=== PATIENT | male | born 2000 | race Two or more races ===

== ENCOUNTER 2021-08-31 09:46 | Outpatient (RCR) | payer SELFPAY | END 2021-09-18 23:59 | LOC: EMPH 09:46 | PROVIDERS: Visit Provider Family Medicine Geriatric Medicine | DX: Z03.818 Encounter for observation for suspected exposure to other biological agents ruled out (principal) | CPT/HCPCS: 87426 ==

== ENCOUNTER 2025-05-05 20:31 | Observation (INO) | payer OTHER, SELFPAY ==
--- NOTE | 2025-05-05 21:47 | HP.PCM.HOS_ITS ---
HPI - General General Date of Admission: 05/05/25 Date of Service: 05/05/25 Chief Complaint: Headache, congestion, cough, dyspnea, F/C. HPI Narrative The patient is a 25 y/o M ([facility] [employer]) w/ PMHx: Obesity, Asthma, Complex regional pain syndrome with chronic R foot pain using crutches chronically who presents to the [facility] ED on 05/05/2025 from outside facility ED with history of onset on day of presentation General Malaise, fatigue, poor intake, generalized headache and sinus pressure with nonproductive cough, dyspnea and subjective fevers and chills as well as shortness of breath but no wheezing prompting eventual ED evaluation at outside facility. Patient does report 1 bout of emesis while in the ambulance while EMS was placing an IV and notes this is very specifically associated with his needle aversion otherwise he only had recently decreased appetite but no other nausea or emesis or any GI symptoms. His and his daughter have not been ill recently. At the outside facility workup not significant appearing however patient was noted to be intermittently hypoxic and ambulatory pulse oximeter was performed and patient was noted to be 86% on room air with ambulation prompting transfer to [facility] request. Workup in the outside facility ED included negative strep throat, CT abdomen pelvis with IV contrast with no acute findings with hepatic steatosis and in regard to the lower thorax noted bibasilar atelectasis and/or scarring, chest x-ray with no acute cardiopulmonary findings, BMP with sodium 137, potassium 3.8, chloride 108, CO2 20, anion gap 16, BUN/creatinine 16/1.01, GFR 105, glucose 108, CBC with WC 16.15, hemoglobin 14.9, MCV 89.3, platelet 259 with left shift, rapid SARS COVID/influenza/RSV negative. [facility] Medical History Complex regional pain syndrome Obesity Asthma Home Medications Medication Instructions Recorded Last Taken Type NK 05/05/25 Unknown History Allergy/AdvReac Type Severity Reaction Status Date / Time No Known Allergies Allergy Verified 05/05/25 20:08 Family History adopted adopted (Closed adoption, does not know biological family history.) Surgical History No history of previous surgery Social History household members: spouse and children Smoking Status: Never smoker alcohol intake: never substance use type: does not use ROS ROS Narrative Admission Review of Systems: CONSTITUTIONAL: No weight loss, + fever, chills, weakness or fatigue. HEENT: + Headache, congestion. Eyes: No visual loss, blurred vision, double vision or yellow sclerae. Ears, Nose, Throat: No hearing loss, sneezing. SKIN: No rash or itching, lesions, wounds. CARDIOVASCULAR: No chest pain, chest pressure or chest discomfort, palpitations, edema, orthopnea, syncopal events. RESPIRATORY: + Dyspnea, nonproductive cough. No wheezing or hemoptysis. GASTROINTESTINAL: + Poor appetite. No nausea, vomiting or diarrhea, abdominal pain, melena, BRBPR. GENITOURINARY: No dysuria, frequency, urgency or retention. NEUROLOGICAL: + Headache/sinus pressure. No dizziness, syncope, paralysis, ataxia, numbness or tingling in the extremities, focal weakness, change in bowel or bladder control, seizure. MUSCULOSKELETAL: + muscle, back pain, joint pain or stiffness. HEMATOLOGIC: No anemia, bleeding or bruising. LYMPHATICS: No enlarged nodes. No history of splenectomy. PSYCHIATRIC: No history of depression or anxiety. ENDOCRINOLOGIC: No reports of sweating, cold or heat intolerance. No polyuria or polydipsia. ALLERGIES: + History of asthma. Vital Signs Vital Signs Vital Signs: 97.9 T, 95 HR, 18 RR, 97% on RA, 150/94 BP Physical Exam Narrative Physical Examination: General: Awake, alert, oriented x 3 and cooperative, laying in the MS bed, fatigued, currently 97% on room air not requiring oxygen supplementation but had been hypoxic with ambulation at outside facility. Skin: Normal color, normal turgor, no icterus, no cyanosis. HEENT: AT/NC, EOMI, PERRLA, moderately dry MM, no carotid bruits or JVD noted. Lungs: CTA bilaterally, moderate effort, mild decrease BL bases, no rales, ronchi or wheezing. Heart: Regular rate and rhythm; no gallop, rub audible. Abdomen: Soft, obese, NTTP, ND, mildly hyperactive BS, no appreciated HSM. Extremities: No cyanosis, no clubbing, mild ankle not markedly pitting edema, bilateral peripheral pulses intact, chronic discomfort with palpation of the right distal extremity. Neurological: Patient awake, alert, oriented as noted, cognitive function intact; pupils equally reactive to light and accommodation, cranial nerves grossly normal, moving all 4 extremities although limited right lower extremity movement given pain which he notes is chronic and unchanged, no focal deficits, strength moderately globally decreased. Psychiatric: Affect appears fatigued, mildly uncomfortable appearing, no acute evidence of depressive or anxiety feelings. Assessment & Plan Assessment/Plan (1) Hypoxia: PLAN: Plan The patient is a 25 y/o M ([facility] [employer]) w/ PMHx: Obesity, Asthma, Complex regional pain syndrome with chronic R foot pain using crutches chronically who presents to the [facility] ED on 05/05/2025 from outside facility ED with history of onset on day of presentation General Malaise, fatigue, poor intake, generalized headache and sinus pressure with nonproductive cough, dyspnea and subjective fevers and chills as well as shortness of breath but no wheezing prompting eventual ED evaluation at outside facility. #1. Acute hypoxia of unclear etiology, given symptoms potentially acute viral syndrome: Will admit to MS, maintain on oxygen with wean as tolerated to room air, continue ATC duonebs, PRN albuterol, will obtain D-dimer given chronic crutch usage and more sessile thus certainly higher risk for possibility of PE but unfortunately cannot obtain CTPA upon arrival given patient was recently administered contrast at outside ED facility for CT abdomen and pelvis with IV contrast, will encourage HOB, IS parameters w/ pending sputum cultures, full respiratory viral panel, procalcitonin and urine antigens. #2. Elevated BP without hypertensive diagnosis: BP upon arrival currently elevated, unclear if related with acute presentation #1, continue to monitor and add regimen if appropriate, in the interim as needed IV hydralazine. #3. Chronic asthma: Complicates presentation, Will maintain on oxygen with wean as tolerated to room air, will maintain on ATC duonebs, PRN albuterol, HOB, IS parameters. #4. Complex regional pain syndrome: Patient with chronic right foot pain using crutches chronically, as noted D-dimer pending, unable to obtain CTPA immediately given usage of contrast at outside facility, encourage offloading, PT/OT/case management consulted for discharge planning. From discussion with patient he uses Tylenol as needed. Will have as needed Toradol given normal renal function as well. #5. Obesity: Weight loss and lifestyle changes encouraged. #6. DVT prophylaxis: Lovenox. Charges/Coding Visit Charges Inpatient E&M: 61396 Init Hosp L2
--- OUTSIDE RECORDS SUMMARY | 2025-05-05 21:49 | XMS RPT_ITS | CCD ---
Author Organization [facility] Care Team Providers Care Chief Operating Officer Name Role Phone MENDY NOLEN Admitting Unavailable MENDY NOLEN Attending Unavailable AA NO PCP, NO PCP Primary Care Unavailable Required, No Pcp Unavailable Unavailable Coty Villela Unavailable Unavailable Unavailable Primary Care Provider Unavailabl e Unavailable Primary Care Provider Unavailabl e COTY VILLELA E Attending Unavailable Unavailable Primary Care Provider Unavailabl e Medications Current Medications Medication Drug Class(es) Dates Sig (Normalized) Sig (Original) benzonatate 100 mg oral capsule (2 sources) Non-narcotic Antitussive Start: 12-20-2022 End: 08-25-2024 take 1-2 capsules by mouth three times daily as needed for cough benzonatate (TESSALON PERLES) 100 mg capsule Indications: URI, acute Take 1-2 capsules by mouth three times daily as needed for cough. 30 capsule 12/20/2022 08/25/2024 Discontinued (Course of therapy completed) Comment on above: Take 1-2 capsules by mouth three times daily as needed for cough. ondansetron 4 mg disintegrating oral tablet (2 sources) Serotonin-3 Receptor Antagonist Start: 08-25-2024 take 1 tablet by mouth every eight hours as needed for nausea ondansetron orally disintegrating (ZOFRAN ODT) 4 mg disintegrating tablet Indications: Viral gastroenteritis Take 1 tablet by mouth every 8 hours as needed for nausea/vomiting. 10 tablet 08/25/2024 Active Start: 06-26-2021 End: 12-20-2022 take 1 tablet by mouth every eight hours as needed ondansetron orally disintegrating (ZOFRAN ODT) 4 mg disintegrating tablet Take 1 tablet by mouth every 8 hours as needed for nausea/vomiting. 12 tablet 0 06/26/2021 12/20/2022 Discontinued (Course of therapy completed) Comment on above: Take 1 tablet by claudia th every 8 hours as needed for nausea/vomiting. Problems Problem Classification Problem Date Documented Da te Episodic/Chronic Administrative/social admission (5 sources) Patient encounter status; Translations: [Health examination of defined subpopulations] Onset: 01-17-2024 03-09-2022 Episodic Headache; including migraine (1 source) Headache; Translations: [Headache, unspecified headache type] 08-25-2024 Episodic Intestinal infection (1 source) Viral gastroenteritis; Translations: [Viral intestinal infection, unspecified] 08-25-2024 Episodic Other upper respiratory infections (1 source) Acute upper respiratory infection; Translations: [Acute upper respiratory infection, unspecified] Episodic Unclassified (2 sources) WORK PHYSICAL 03-09-2022 Comment on above: WORK PHYSICAL Unclassified (1 source) Physical exam, pre-employment 03-09-2022 Results Test Name Value Interpretation Reference Range Facil ity Provider Note - ED v3on 02-17 Provider Note - ED v3 Provider Note: Chart Review: HISTORY OF PRESENTING ILLNESS JITENDRA is a 21 year old Male and was seen by me at 09-Mar-2022 10:09. The historian is the patient. Triage Information: Most recent Vital Sign Value Date PAST MEDICAL HISTORY ALLERGIES/INTOLERANCES: No Known Allergies HEALTH HISTORY: History of "complex regional pain syndrome" in R knee with ACL/MCL damage s/p [place]. No other known health issues. Family history: no pertinent history. Social history: non-smoker. 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 OUTPATIENT MEDICATIONS: Home Medications Review Status for Reconciliation: Complete Med Status: No Current Medications SIGNIFICANT EVENTS: Social/Behavioral Description:pt denies use No known significant events or known past surgical history. Is up to date with immunizations, per patient. CRITICAL CARE VITAL SIGNS: T PRBP SpO2O2(LPM) %FiO2 Method 09-Mar-2022 09:47:[id number] Recheck BP: 142/93. Patient asymptomatic - reports drank a 2 L of Mountain Dew this AM before his visit. Denies history of elevated BP/HTN. MDM MDM/ED COURSE: This note was generated with voice recognition software and may contain errors including spelling, grammar, syntax, and misrecognization of what was dictated CHIEF COMPLAINT work physical HISTORY OF PRESENT ILLNESS Patient presents today for a pre-employment physical - is planning to start as an SENIOR SOFTWARE TESTER at a [employer]. He is not currently taking any medications or supplements; denies any known health issues aside from Complex Regional Pain Syndrome in his R knee, which has been baseline since an injury in high school. He does not currently take any medications for his symptoms, and does not feel his intermittent mild knee discomfort (that he is able to easily manage with OTC medications) would interfere with job duties - reports has recently worked as an SENIOR SOFTWARE TESTER without any difficulties. He reports is up to date with all immunizations and well visits - reports has already received the [id number] flu vaccine and the Hep B series. Denies any complaints. Has never had any c/o chest pain, needed to stop playing, or developed shortness of breath during exercise. Denies any personal or family history of cardiac or respiratory issues, headaches, seizures, dizziness, syncope, musculoskeletal issues (aside from as noted above), mental health issues, head injury, or other contraindications to clearance for physical activity. REVIEW OF SYMPTOMS 10 systems reviewed negative aside from as noted above. Denies any acute c/o. PHYSICAL EXAMINATION General: Pleasant male, in no acute distress. Alert and oriented. Eye: Pupils are equal, round and reactive to light. EOMI intact bilat. Conjunctiva clear. HENT: Normocephalic. TMs and pharynx clear. Hearing grossly intact to whisper test and finger rub test bilat. Neck: Supple, Non-tender, No lymphadenopathy, no thyromegaly. Respiratory: Lungs are clear and equal to auscultation, no wheezing, rhonchi, or rales. Respirations are easy and unlabored. Symmetrical chest wall expansion. Cardiovascular: Normal rate, Regular rhythm. Normal S1S2. No murmurs, rubs, or gallops noted in seated or supine position. Gastrointestinal: Soft, non-tender, non-distended. No palpable masses or organomegaly. Bowel sounds normoactive. Genitourinary: no hernias appreciated. Musculoskeletal: No spinal curvature. Normal range of motion spine and all extremities; full strength all extremities proximally and distally, no joint tenderness, redness, swelling, laxity, or limitations. Patellar DTRs 2+ bilat. Able to perform full squat, heel/toe stand, and duck walk without difficulty. Gait unremarkable. Integumentary: Kenney, warm, dry, and Intact. No rashes appreciated. Neurologic: Alert, Oriented, Normal sensory, Normal motor function. administrator health care facility 2-12 grossly intact. Neg Romberg. Cognition and Speech: Oriented, Speech clear and coherent. Psychiatric: Cooperative, Appropriate mood & affect. MEDICAL DECISION MAKING Course: Unchanged; unremarkable physical exam. Impression/Plan: Reports history of "complex regional pain syndrome" in R knee but denies any limitations, and none noted on exam today. BP today was markedly elevated but improved significantly upon recheck; patient asymptomatic and reports drank a 2 L of Mountain Dew prior to today's visit. Urged lifestyle modifications and close monitoring. Based on history and exam, patient medically cleared for work without restriction, although encouraged good body mechanics, and to f/u closely with PCP. Should also consider f/u with optometry for vision correction. Problem: need for medical clearance for pre-employement Data reviewed/analyzed: No labwork, imaging, or tests outside of physical exam don (more content not included)... Normal [facility] COVID 19 AG RAPID (VANCE Kaye)on 08-31-2021 SARS-CoV-2 (COVID-19) RNA NATASHA+probe Ql (Unsp spec) SARS-CoV-2 (COVID 19) Negative RAPID METHOD Quidel Rosemarie Analyzer DONALD Normal [facility] Comment on above: Performed By: #### [id number] #### [facility] [address] [place], [place], [id number] Urgent Care Visit Reporton 1 10-10-2020 Urgent Care Visit Report [facility] [address] [place], [place] [address] OFFICE VISIT Date of Service: 08/09/21 MR#: [id number] Acct: [id number] Name: JITENDRA ALLEN Rep #: [id number] : 2000 Provider: ERIKA anderson Age/Sex: 21/M Location: [facility] Status: Signed Intake Intake Visit Reasons: PE PHYSICAL/[facility] Medical History (Updated 08/09/21 @ 09:40 by ERIKA Jorge) Physical exam, pre-employment HPI HPI Details: JITENDRA ALLEN, is a 21 M who presents to the office today for Office Procedures Physical Exam Coding PE Coding Sports/School Physical: No DOT PE: No Pre-employment PE: Yes Coding Level of Care Code No Charge Diagnoses Physical exam, pre-employment Z02.1 CPT Codes PE Coding - Pre-employment PE: Yes (PREPE) Assessment and Plan Assessment and Plan (1) Physical exam, pre-employment: Status: Acute Plan: See attached scanned preemployment physical examination forms corresponding with today's date 08/09/21939 Date Mohinder JAMES Cosigner Signature: Date (if applicable) CC: Normal [facility] DONIS XR Chest 1 view-APon 02-17 DONIS XR Chest 1 view-AP PORTABLE CHEST: CLINICAL INDICATION: Positive skin test, annual physical exam TECHNIQUE: PA chest COMPARISON: None FINDINGS: The cardiac and mediastinal silhouettes are normal. The lungs are clear. No sizable pleural effusion. The osseous structures are unremarkable. IMPRESSION: No acute process. Report Dictated on Authenticated by: Sandro Krause On: 03/09/2020 10:32 Read by: SANDRO KRAUSE MD Date: 03/09/2020 10:32 Normal [facility] Vital Signs Date Time Vital Sign Value Performing Clinician Facility 01-17-2024 11:15-0400 Diastolic blood pressure 94 mm[Hg] Coty Villela APRN-SHODER FILLER Work Phone: [facility] 01-17-2024 11:15-0400 Systolic blood pressure 138 mm[Hg] Coty Villela APRN-SHODER FILLER Work Phone: [facility] 01-17-2024 10:52-0400 Body height 170.2 cm Coty Villela APRN-SHODER FILLER Work Phone: [facility] 01-17-2024 10:52-0400 Body mass index (BMI) [Ratio] 33.67 kg/m2 Coty Villela APRN-SHODER FILLER Work Phone: [facility] 01-17-2024 10:52-0400 Body temperature 98.8 [degF] Coty Villela APRN-SHODER FILLER Work Phone: [facility] 01-17-2024 10:52-0400 Body weight 97.52 kg Coty Villela APRN-SHODER FILLER Work Phone: [facility] 01-17-2024 10:52-0400 Heart rate 71 /min Coty Villela APRN-SHODER FILLER Work Phone: [facility] 01-17-2024 10:52-0400 Respiratory rate 18 /min Coty Villela APRN-SHODER FILLER Work Phone: [facility] 01-17-2024 10:52-0400 SaO2% (BldA) [Mass fraction] 98 % Coty Villela APRN-SHODER FILLER Work Phone: [facility] 03-09-2022 11:47-0400 Body height 168 cm No Pcp Required [facility] 03-09-2022 11:47-0400 Body temperature 97.16 [degF] No Pcp Required [facility] 03-09-2022 11:47-0400 Diastolic blood pressure 93 mm[Hg] No Pcp Required [facility] 03-09-2022 11:47-0400 Heart rate 92 /min No Pcp Required [facility] 03-09-2022 11:47-0400 SaO2% (BldA) [Mass fraction] 97 % No Pcp Required [facility] 03-09-2022 11:47-0400 Systolic blood pressure 142 mm[Hg] No Pcp Required [facility] Encounters Encounter Date Encounter Type Care Provider Facility Start: 08-25-2024 End: 08-25-2024 Telemedicine consultation with patient Karma D Rafa STEAMER BLOCKER.SHODER FILLER Work Phone: Tele[facility] Comment on above: Viral gastroenteriti s (Primary Dx); Headache, unspecified headache type Start: 08-25-2024 End: 08-25-2024 ambulatory Facility:[facility] Start: 01-17-2024 End: 01-17-2024 Patient encounter procedure Coty Villela STEAMER BLOCKER-SHODER FILLER Work Phone: [facility] Comment on above: Encounter for physic al examination related to employment (Primary Dx) Start: 01-17-2024 End: 01-17-2024 ambulatory COTY VILLELA [facility] Start: 12-20-2022 End: 12-20-2022 ambulatory Nickie Olegario STEAMER BLOCKER.SHODER FILLER Work Phone: Telemedicine Comment on above: URI, acute (Primary Dx); Encounter to establish care Start: 12-20-2022 End: 12-20-2022 Telemedicine consultation with patient Nickie Olegario STEAMER BLOCKER.SHODER FILLER Work Phone: [facility] Start: 03-09-2022 End: 03-09-2022 Emergency department patient visit Coty Villela [facility] Start: 03-09-2020 End: 03-09-2020 Patient encounter procedure MENDY Kael [facility] Plan of Treatment Date Care Activity Detail Author Start: 2048 Zoster Vaccines (1 of 2) Zoster Vaccines (1 of 2) [facility] Start: 04-19-2024 Covid-19 Vaccine ( season) Covid-19 Vaccine ( season) [facility] Start: 04-19-2024 Influenza vaccination [facility] Start: 04-19-2023 COVID-19 Vaccine ( season) COVID-19 Vaccine ( season) [facility] Start: 04-19-2023 Influenza vaccination [facility] Start: 08-19-2022 DEPRESSION ASSESSMENT DEPRESSION ASSESSMENT [facility] Start: 04-05-2019 DTaP/Tdap/Td Vaccines (7 - Td or Tdap) DTaP/Tdap/Td Vaccines (7 - Td or Tdap) [facility] Start: 04-05-2019 Urine microalbumin profile DTaP,Tdap,Td Vaccine (7 - Td or Tdap) [facility] Start: 2017 Urine microalbumin profile DTAP,TDAP,TD (1 - Tdap) [facility] Start: 07-25-2016 Hepatitis A Vaccines (2 of 2 - 2-dose series) Hepatitis A Vaccines (2 of 2 - 2-dose series) [facility] Start: 2016 Anxiety Screening Anxiety Screening [facility] Start: 2016 Depression Screening Depression Screening [facility] Start: 2016 HEPATITIS C SCREENING HEPATITIS C SCREENING [facility] Start: 2016 Hepatitis C screening Hepatitis C Screening [facility] Start: 2016 HIV SCREENING HIV SCREENING [facility] Start: 2016 HIV screening HIV Screening [facility] Start: 2013 HPV Vaccine (1 - Male 3-dose series) HPV Vaccine (1 - Male 3-dose series) [facility] Start: 2013 HPV Vaccines (1 - Male 3-dose series) HPV Vaccines (1 - Male 3-dose series) [facility] Start: 2012 PEDS TO ADULT TRANSITION ANNUAL ASSESSMENT PEDS TO ADULT TRANSITION ANNUAL ASSESSMENT [facility] Start: 2010 PEDS TO ADULT TRANSITION INITIAL DISCUSSION PEDS TO ADULT TRANSITION INITIAL DISCUSSION [facility] Start: 2009 HPV VACCINE (1 - Male 2-dose series) HPV VACCINE (1 - Male 2-dose series) [facility] Start: 2008 MENINGOCOCCAL B: Consider based on risk (1 of 2 - Risk Bexsero 2-dose series) MENINGOCOCCAL B: Consider based on risk (1 of 2 - Risk Bexsero 2-dose series) [facility] Start: 1998 COVID-19 VACCINE (#1) COVID-19 VACCINE (#1) [facility] Start: 1998 HEPATITIS B (1 of 3 - 3-dose series) HEPATITIS B (1 of 3 - 3-dose series) [facility] Start: 1998 HIV screening HIV Screening [facility] Start: 1998 Lipid panel Lipid Panel [facility] Start: 1998 Yearly Adult Physical Yearly Adult Physical [facility] Immunizations Immunization Date Immunization Notes Care Provider Fa pedro 08-31-2021 influenza virus vaccine, unspecified formulation Coty Villela STEAMER BLOCKER-SHODER FILLER Work Phone: [facility] Work Phone: 01-24-2016 hepatitis A and hepatitis B vaccine Coty Villela STEAMER BLOCKER-SHODER FILLER Work Phone: [facility] Work Phone: Payers Date Payer Category Payer Private Health Insurance [facility] [employer] [id number] 2024-Present [phone] [address] [place] [address] HMO [id number] 2024 Unknown [id number] 1961 Unknown 0 Unknown [id number] Unknown SELF PAY PRE CAR D SERVICES\\SELF PAY PRE PAID Social History Date Type Detail Facility [facility] Tobacco smoking consumption unknown [facility] Start: 12-18-2019 End: 01-17-2024 Tobacco smoking status NHIS Never smoked tobacco [facility] Work Phone: Start: 12-18-2019 End: 01-17-2024 Tobacco use and exposure Smokeless tobacco non-user [facility] Work Phone: Start: 2000 Sex Assigned At Not on file [facility] Start: 01-17-2024 Alcoholic beverage intake Current drinker of alcohol (finding) [facility] Work Phone: Start: 01-17-2024 Alcohol Comment social [facility] Work Phone: Start: 07-29-2020 End: 08-25-2024 Gender identity Not on file [facility] Work Phone: Start: 01-07-2024 End: 01-17-2024 Exposure to SARS-CoV-2 (event) Not sure [facility] Start: 07-29-2020 End: 08-25-2024 History of Social function [facility] National Score (1-100), lower number is lower risk Not on file [facility] Instructions 08-25-2024 Patient Instructions Note Date & Type Note Facility 08-25-2024 Instructions Karma Craig APRN.CNP - 08/25/2024 9:10 AM EST Please seek further in person evaluation for persistent or worsening symptoms. documented in this encounter [facility] Progress note 08-25-2024 Note Date & Type Note Facility 08-25-2024 Note HNO ID: [id number] Author: KARMA CRAIG APRN.CNP Service: ? Author Type: Nurse Practitioner Type: Progress Notes Filed: 08/25/2024 09:10 Note Text: Telemedicine Evaluation for an Illness MyChart Zoom Video Visit was used for evaluation of this patient. I have communicated my name and active licensure. The patient's identity and physical location were verified at the time of this visit. 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 WILLIAN Allen is a 24 year old male who presents with 4 days of symptoms that are stable. Symptoms include: Fever (>=100.4F): No or Chills: No Cough: No Shortness of breath: No or Difficulty breathing: No Fatigue: No Muscle aches: No Headache: Yes New loss of smell or taste: No Sore throat: No Nasal congestion: No or Rhinorrhea: No Nausea: Yes or Vomiting: Yes Diarrhea: Yes Started with GI issues, lasted about 24 hours, then developed headache for a day or two and then the GI symptoms came back and are ongoing, though vomiting has decreased. Also with some chest/stomach tightness, that he believes is d/t vomiting. OTC meds/remedies that patient has tried: Excedrin High risk category assessment No high risk factors Exposures: Sick contacts? Yes Family or close contacts with confirmed/probable COVID-19 in last 14 days? No He reports that he has never smoked. He has never used smokeless tobacco. 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 He appears to be improving, though slowly and when he takes medication for headache, nausea gets worse. Will try Zofran with goal of helping nausea, so he can start to eat again, hoping that headache medication doesn't trigger more nausea if he has something in his stomach when taking. Overall expect this to be self-limiting. Karma Craig APRN.CINTIA - Discussed symptom monitoring and supportive care - Red flag symptoms requiring follow up discussed [facility] History of Present illness Narrative 08-25-2024 Karma Craig APRN.CINTIA - 08/25/2024 8:56 AM EST Note Date & Type Note Facility 08-25-2024 History of Presen t illness Narrative Telemedicine Evaluation for an Illness MyChart Zoom Video Visit was used for evaluation of this patient. I have communicated my name and active licensure. The patient's identity and physical location were verified at the time of this visit. 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 SUBJECTIVE Jitendra Allen is a 24 year old male who presents with 4 days of symptoms that are stable. Symptoms include: Fever (>=100.4F): No or Chills: No Cough: No Shortness of breath: No or Difficulty breathing: No Fatigue: No Muscle aches: No Headache: Yes New loss of smell or taste: No Sore throat: No Nasal congestion: No or Rhinorrhea: No Nausea: Yes or Vomiting: Yes Diarrhea: Yes Started with GI issues, lasted about 24 hours, then developed headache for a day or two and then the GI symptoms came back and are ongoing, though vomiting has decreased. Also with some chest/stomach tightness, that he believes is d/t vomiting. OTC meds/remedies that patient has tried: Excedrin High risk category assessment No high risk factors Exposures: Sick contacts? Yes Family or close contacts with confirmed/probable COVID-19 in last 14 days? No He reports that he has never smoked. He has never used smokeless tobacco. 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 He appears to be improving, though slowly and when he takes medication for headache, nausea gets worse. Will try Zofran with goal of helping nausea, so he can start to eat again, hoping that headache medication doesn't trigger more nausea if he has something in his stomach when taking. Overall expect this to be self-limiting. Karma Craig APRN.CNP - Discussed symptom monitoring and supportive care - Red flag symptoms requiring follow up discussed documented in this encounter [facility] History of Present illness Narrative 01-17-2024 WU Jenkins - 01/17/2024 10:50 AM EDT Note Date & Type Note Facility 01-17-2024 History of Present illness Narrative [facility] WU Jenkins Visit Note - 01/17/2024 11:32 AM This note was generated with voice recognition software and may contain errors including spelling, grammar, syntax, and misrecognization of what was dictated. Patient: Jitendra Allen, , 23 y.o., male PCP: No primary care provider on file. --- ALLERGIES: No Known Allergies CURRENT MEDICATIONS: No current outpatient medications --- PAST MEDICAL HX: History of Complex Regional Pain Syndrome R knee since injury in HS; also has history of elevated BP. SURGICAL HX: History reviewed. No pertinent surgical history. FAMILY HX: No pertinent history. SOCIAL HX: reports that he has never smoked. He has never used smokeless tobacco. Recently stopped drinking Mountain Dew and energy drinks. Is an SENIOR SOFTWARE TESTER. --- CHIEF COMPLAINT: Work physical HISTORY OF PRESENT ILLNESS: The history was obtained from patientLizzy Ham is a 23 y.o. 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 He is not currently on any medications; reports he did recently stop drinking Mountain Dew and energy drinks to try to help lower his BP, which has been elevated in the past. Has history of CRPS in his R knee since 2290-1101 - reports his symptoms are well managed and patient does not feel his symptoms would interfere with ability to safely perform duties as an SENIOR SOFTWARE TESTER; has not needed to see a doctor anytime in the past few years for his symptoms. Is not taking any medications or supplements. Has history of + TB skin test in the past - reports he has been asymptomatic and has had follow up CXRs several times since then and they have all been negative. Has not been treated for Latent TB. Denies any other known health issues. Reports is up to date with Hepatitis B vaccines; is due for tetanus vaccine and plans to update it. Denies any complaints. Denies any chest pain or shortness of breath during physical activity. Denies any personal or family history of cardiac or respiratory issues, seizures, dizziness, syncope, other musculoskeletal issues, other communicable disease, mental health issues, head injury, or other contraindications to clearance for physical activity and job duties as an SENIOR SOFTWARE TESTER. REVIEW OF SYSTEMS: 10 systems reviewed negative with exception of history of present illness as listed above. TODAY'S VITALS: BP (!) 141/101 Pulse 71 Temp 37.1 C (98.8 F) Resp 18 Ht 1.702 m (5' 7") Wt 97.5 kg (215 lb) SpO2 98% BMI 33.67 kg/m Recheck BP 138/94. PHYSICAL EXAMINATION: General: Pleasant male, in no acute distress. Alert and oriented. Eye: Pupils are equal, round and reactive to light. EOMI intact bilat. Conjunctiva clear. HENT: Normocephalic. TMs and pharynx clear. Hearing grossly intact to finger rub test bilat. Neck: Supple, Non-tender, No lymphadenopathy, no thyromegaly. Respiratory: Lungs are clear and equal to auscultation, no wheezing, rhonchi, or rales. Respirations are easy and unlabored. Symmetrical chest wall expansion. Cardiovascular: Normal rate, Regular rhythm. Normal S1S2. No murmurs, rubs, or gallops noted in seated or supine position. Gastrointestinal: Soft, non-tender, non-distended. No palpable masses or organomegaly. Bowel sounds normoactive. Genitourinary: No hernias appreciated. Musculoskeletal: No spinal curvature. Normal range of motion spine and all extremities; full strength all extremities proximally and distally, no joint tenderness, redness, swelling, laxity, or limitations. Patellar DTRs 2+ bilat. Able to perform full squat, heel/toe stand, and duck walk without difficulty. Gait unremarkable. Integumentary: Kenney, warm, dry, and Intact. No rashes appreciated. Neurologic: Alert, Oriented, Normal sensory, Normal motor function. administrator health care facility 2-12 grossly intact. Neg Romberg. Cognition and Speech: Oriented, Speech clear and coherent. Psychiatric: Cooperative, Appropriate mood & affect. --- Medical Decision Making LABORATORY or RADIOLOGICAL IMAGING ORDERS/RESULTS: None IMPRESSION/PLAN: Course: Stable 1. Encounter for physical examination related to employment Reviewed copy of negative CXR from 03/2022; has been asymptomatic. Encouraged to update Tetanus vaccine as planned. 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 Paperwork completed and handed to patient. [facility] documented [facility] Work Phone: Instructions 12-20-2022 Patient Instructions Note Date & Type Note Facility 12-20-2022 Instructions Nickie Melvin APRN.CNP - 12/20/2022 7:37 PM EDT Please schedule a next available establishing physical with a primary care provider. The [facility] appointment center is open 11/03 and can assist you with scheduling by calling [phone]. Please complete a rapid at home covid test. Have a visit again virtually if covid test is positive. Get plenty of rest, take hot steamy showers/drink warm liquids and breathe in the steam, and stay hydrated. There is no great cough medication. Often remedies such as tea, warm steamy showers, and staying hydrated are the most effective. If you are having a productive cough (meaning you are getting mucous up with your cough), it is preferred to cough and get the mucous out so please only take cough suppressants when you really don't want to cough such as with sleeping. Some options for cough if needed: - Cough drops - Dextromethorphan (can cause drowsiness so may be best to take at bedtime), this is in over the counter medications such as mucinex DM. - Benjieon Lilli (prescription) Do not take oxymetazoline (afrin) Begin taking fluticasone (flonase)- one to two sprays in each nostril once daily before bed: 1. Blow your nose out before spraying 2. Shake it before spraying each time. 3. Keep head in neutral position or looking down slightly. 4. Put about a quarter of the tip of the bottle in the right nostril and aim at the outside corner of the right eye. 5. Pitman one spray only. Take a sniff as you are spraying but do not snort. 6. Repeat in the left nostril while pointing towards the outside corner of the left eye 8. Then if you are doing two sprays in each nostril wait 4-5 minutes before spraying the second spray. 9. If it drips out every time such when the nose is very congested. Have the patient sit on the bed. Look down, spray and then lay down on their back on a bed. This will allow the medicine to coat the nose on the way back. Sit up and repeat for the other side. Can also try loratadine (claritin), fexofenadine (micah), OR cetirizine (zyrtec) as needed for allergy/congestion relief, preferred at bedtime since it can make you drowsy. Cetirizine (zyrtec) has been shown to sometimes be more effective than the others. The generic form is much less expensive than the brand name. documented in this encounter [facility] History of Present illness Narrative 12-20-2022 Nickie Melvin APRN.CINTIA - 12/20/2022 7:32 PM EDT Note Date & Type Note Facility 12-20-2022 History of Presen t illness Narrative Telemedicine Visit - Distance Health Virtual Visit Note Patient seen on [employer] platform. Location of patient: [place] History of Present Illness Jitendra Allen is a 22 year old male who presents for the past 2 days with symptoms that are:waxing and waning. Symptoms include: Fever (?100.4F): Chills, did not take temp Shortness of breath: No Chest Pain: No Cough: Yes - dry Sore throat: Yes Nasal congestion: Yes Loss or altered sense of smell or taste: No Headache or sinus pain/sinus pressure: Yes Ear pain: No Ear pressure: No Nausea: Yes or Vomiting: No Diarrhea: Yes Signs of dehydration (low fluid intake or voiding, dry mucus membranes): No Recent exposure to strep:No Recent exposure to flu:No Recent exposure to COVID:No Recent travel: No Recent rapid at home COVID test taken? No Treatments tried: OTC cold medicine Tobacco Use: Never PAST MEDICAL HISTORY Diagnosis Date Asthmatic bronchitis No past surgical history on file. No family history on file. Social History Tobacco Use Smoking status: Never Smokeless tobacco: Never Vaping Use Vaping Use: Never used Current Outpatient Medications Medication Sig ondansetron orally disintegrating (ZOFRAN ODT) 4 mg disintegrating tablet Take 1 tablet by mouth every 8 hours as needed for nausea/vomiting. No current facility-administered medications for this visit. ALLERGIES No Known Allergies Allergies, medications, problem list, and pertinent history reviewed: Yes Video Exam (Examination performed via Video enabled technology) General appearance: Alert, oriented, pleasant, in NAD: Yes Ill appearing: No Lethargic appearing: No Eyes: Conjunctiva without erythema: Yes Ears: Tragus / outer ear tenderness by self palpation: No Oropharynx: normal, no erythema Frontal sinus tenderness by self palpation: +Yes, mild Maxillary sinus tenderness by self palpation: +Yes, mild Tender cervical adenopathy by self palpation: No Respiratory distress: No Coughing noted: No Audible wheezing noted: No Assessment and Plan (J06.9) URI, acute (primary encounter diagnosis) Plan: benzonatate (TESSALON PERLES) 100 mg capsule (Z76.89) Encounter to establish care Plan: ESTABLISH WITH PRIMARY CARE - NEW PATIENT Jitendra Allen will begin meds as noted. Discussed pertinent side effects of medications. Patient and/or caregiver verbalized understanding. - Discussed the differences between viral and bacterial illnesses and at this time there is no indication of a bacterial illness - AVS instructions reviewed with patient. Please refer to AVS instructions for additional plan and education. - Discussed symptoms/conditions warranting urgent or immediate evaluation and/or when to return to care - All questions answered. Patient and/or caregiver verbalized understanding and comfortable with plan. Please schedule a next available establishing physical with a primary care provider. The [facility] appointment center is open 11/03 and can assist you with scheduling by calling [phone]. Please complete a rapid at home covid test. Have a visit again virtually if covid test is positive. Get plenty of rest, take hot steamy showers/drink warm liquids and breathe in the steam, and stay hydrated. There is no great cough medication. Often remedies such as tea, warm steamy showers, and staying hydrated are the most effective. If you are having a productive cough (meaning you are getting mucous up with your cough), it is preferred to cough and get the mucous out so please only take cough suppressants when you really don't want to cough such as with sleeping. Some options for cough if needed: - Cough drops - Dextromethorphan (can cause drowsiness so may be best to take at bedtime), this is in over the counter medications such as mucinex DM. - Tessalon Perles (prescription) Do not take oxymetazoline (afrin) Begin taking fluticasone (flonase)- one to two sprays in each nostril once daily before bed: 1. Blow your nose out before spraying 2. Shake it before spraying each time. 3. Keep head in neutral position or looking down slightly. 4. Put about a quarter of the tip of the bottle in the right nostril and aim at the outside corner of the right eye. 5. Pitman one spray only. Take a sniff as you are spraying but do not snort. 6. Repeat in the left nostril while pointing towards the outside corner of the left eye 8. Then if you are doing two sprays in each nostril wait 4-5 minutes before spraying the second spray. 9. If it drips out every time such when the nose is very congested. Have the patient sit on the bed. Look down, spray and then lay down on their back on a bed. This will allow the medicine to coat the nose on the way back. Sit up and repeat for the other side. Can also try loratadine (claritin), fexofenadine (micah), OR cetirizine (zyrtec) as needed for allergy/congestion relief, preferred at bedtime since it can make you drowsy. Cetirizine (zyrtec) has been shown to sometimes be more effective than the others. The generic form is much less expensive than the brand name. I have communicated my name and active licensure. The patient's identity and physical location were verified at the time of this visit. 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 Nickie Melvin APRN.CNP If you let us know who your primary care provider is, we will send them a notification of today s visit through our electronic medical records system. Since not all providers have access to our notifications, we strongly encourage you to share the following record of today s visit with your primary care provider at your next visit. This will help in providing you the best care. If you do not have an established Primary Care physician and would like to continue care with a [facility] Virtual Primary Care physician, please ask your provider to place a "Establish Primary Care" order. Use [employer] to manage your care, wherever you are, 11/03, on your mobile device or computer. [employer] connects you to [employer] so you can access all your health information in one place and also schedule and request virtual appointments with primary care providers. documented in this encounter [facility] Evaluation note Note Date & Type Note Facility Evaluation note Diagnosis URI, acute- Primary Acute upper respiratory infections of unspecified site Encounter to establish care Other reasons for seeking consultation documented in this encounter [facility] Evaluation note Note Date & Type Note Facility Evaluation note Diagnosis Encounter for physical examination related to employment- Primary documented in [facility] encounter [facility] Work Phone: Evaluation note Note Date & Type Note Facility Evaluation note Diagnosis Viral gastroenteritis- Primary Intestinal infection due to other organism, not elsewhere classified Headache, unspecified headache type documented in this encounter [facility] Summary Purpose Family History No Family History Records FoundNo Family History Records FoundNo Family History Records FoundNo Family History Records FoundNo Family History Records Found Advance Directives No Advanced Directives Records FoundNo Advanced Directives Records FoundNo Advanced Directives Records FoundNo Advanced Directives Records FoundNo Advanced Directives Records Found Reason for Referral Specialty Diagnoses / Procedures Referred By Contsandra t Referred To Contact Diagnoses Encounter to establish care Procedures ESTABLISH WITH PRIMARY CARE NEW PATIENT OFFICE/OUTPATIENT NEW [facility] 60-74 MINUTES Nickie Melvin APRN.CNP [address] [place] [address] Referral ID Status Reason Start Date Expiration Date Visits Requested Visits Authorized [id number] Pending Review PCP Requested Referral 12/20/2022 12/20/2023 1 1 Additional Source Comments (unrecognized sect ion and content) No Status Records FoundNo Status Records FoundNo Status Records FoundNo Status Records FoundNo Status Records Found INFORMATION SOURCE (unrecogn ized section and content) DATE CREATED AUTHOR 03/12/2020 [facility] DATE CREATED AUTHOR AUTHOR'S ORGANIZ ATION 12/22/2021 [facility] DATE CREATED AUTHOR AUTHOR'S ORGANIZ ATION 03/13/2022 [facility] DATE CREATED AUTHOR AUTHOR'S ORGANIZ ATION 01/18/2024 [facility] DATE CREATED AUTHOR AUTHOR'S ORGANIZ ATION 08/31/[address] [facility] <item> Privacy Markings (unrecogniz ed section and content) Section Author: Latonia Khan PROHIBITION ON REDISCLOSURE OF CONFIDENTIAL INFORMATION This notice accompanies a disclosure of information concerning a client made to you with the consent of such client. Source Comments (unrecognize d section and content) In the event this informatio n is protected by the Federal Confidentiality of Alcohol and Drug Abuse Patient Records regulations: The Federal rules restrict any use of the information to criminally investigate or prosecute any alcohol or drug abuse patient.[facility] the event this information is protected by the Federal Confidentiality of Alcohol and Drug Abuse Patient Records regulations: The Federal rules restrict any use of the information to criminally investigate or prosecute any alcohol or drug abuse patient.[facility] Reason for Visit (unrecogniz ed section and content) Reason Comments Cough Reason Comments Illness FOR RECORDS PERTAINING TO PATIENTS WHO ARE OR HAVE BEEN ENROLLED IN A CHEMICAL DEPENDENCY/SUBSTANCEABUSE PROGRAM, SOME INFORMATION MAY BE OMITTED. This clinical summary was aggregated from multiple sources. Caution should be exercised in using it in the provision of clinical care. This summary normalizes information from multiple sources, and as a consequence, information in this document may materially change the coding, format and clinical context of patient data. In addition, data may be omitted in some cases. CLINICAL DECISIONS SHOULD BE BASED ON THE PRIMARY CLINICAL RECORDS. [facility] [employer] [facility]. provides no warranty or guarantee of the accuracy or completeness of information in this document.
[2025-05-05 21:51] VITALS: BMI 33.2
--- OUTSIDE RECORDS SUMMARY | 2025-05-05 21:54 | XMS RPT_ITS | CCD ---
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 OUTPATIENT MEDICATIONS: Home Medications Review Status for Reconciliation: Complete Med Status: No Current Medications SIGNIFICANT EVENTS: Social/Behavioral Description:pt denies use No known significant events or known past surgical history. Is up to date with immunizations, per patient. CRITICAL CARE VITAL SIGNS: T PRBP SpO2O2(LPM) %FiO2 Method 09-Mar-2022 09:47:[id number] 97 Recheck BP: 142/93. 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 He reports is up to date with all immunizations and well visits - reports has already received the [id number] flu vaccine and the Hep B series. [...] duck walk without difficulty. Gait unremarkable. Integumentary: Bentley, warm, dry, and Intact. No rashes appreciated. Neurologic: Alert, Oriented, Normal sensory, Normal motor function. pipe tester 2-12 grossly intact. Neg Romberg. Cognition and [...] exam don (more content not included)... Normal [facility] COVID 19 AG RAPID (VANCE Kaye)on 08-31-2021 SARS-CoV-2 (COVID-19) RNA NATASHA+probe Ql (Unsp spec) SARS-CoV-2 (COVID 19) Negative RAPID METHOD Quidel Rosemarie Analyzer DONALD Normal [facility] Comment on above: Performed By: #### [id number] #### [facility] [address] [place], [place], [id number] Urgent Care Visit Reporton 1 10-10-2020 Urgent Care Visit Report [facility] [facility] [address] [place], [place] [address] OFFICE VISIT Date of Service: 08/09/21 MR#: [id number] Acct: [id number] Name: JITENDRA ALLEN Rep #: [id number] : 2000 Provider: ERIKA anderson Age/Sex: 21/M Location: [facility] [place] [place] Status: Signed Intake Intake Visit Reasons: PE PHYSICAL/[facility] Medical History (Updated 08/09/21 @ [...] Cosigner Signature: Date (if applicable) CC: Normal [facility] DONIS XR Chest 1 view-APon 02-17 DONIS [...] SANDRO KRAUSE MD Date: 03/09/2020 10:32 Normal [facility] Vital Signs Date Time Vital Sign Value Performing Clinician Facility 01-17-2024 11:15-0400 Diastolic blood pressure 94 mm[Hg] Coty Villela APRN-BALANCE AND HAIRSPRING ASSEMBLER Work Phone: [facility] 01-17-2024 11:15-0400 Systolic blood pressure 138 mm[Hg] Coty Villela APRN-BALANCE AND HAIRSPRING ASSEMBLER Work Phone: [facility] 01-17-2024 10:52-0400 Body height 170.2 cm Coty Villela APRN-BALANCE AND HAIRSPRING ASSEMBLER Work Phone: [facility] 01-17-2024 10:52-0400 Body mass index (BMI) [Ratio] 33.67 kg/m2 Coty Villela APRN-BALANCE AND HAIRSPRING ASSEMBLER Work Phone: [facility] 01-17-2024 10:52-0400 Body temperature 98.8 [degF] Coty Villela APRN-BALANCE AND HAIRSPRING ASSEMBLER Work Phone: [facility] 01-17-2024 10:52-0400 Body weight 97.52 kg Coty Villela APRN-BALANCE AND HAIRSPRING ASSEMBLER Work Phone: [facility] 01-17-2024 10:52-0400 Heart rate 71 /min Coty Villela APRN-BALANCE AND HAIRSPRING ASSEMBLER Work Phone: [facility] 01-17-2024 10:52-0400 Respiratory rate 18 /min Coty Villela APRN-BALANCE AND HAIRSPRING ASSEMBLER Work Phone: [facility] 01-17-2024 10:52-0400 SaO2% (BldA) [Mass fraction] 98 % Coty Villela APRN-BALANCE AND HAIRSPRING ASSEMBLER Work Phone: [facility] 03-09-2022 11:47-0400 Body height 168 cm No Pcp Required [facility] 03-09-2022 11:47-0400 Body temperature 97.16 [degF] No Pcp Required [facility] 03-09-2022 11:47-0400 Diastolic blood pressure 93 mm[Hg] No Pcp Required [facility] 03-09-2022 11:47-0400 Heart rate 92 /min No Pcp Required [facility] 03-09-2022 11:47-0400 SaO2% (BldA) [Mass fraction] 97 % No Pcp Required [facility] 03-09-2022 11:47-0400 Systolic blood pressure 142 mm[Hg] No Pcp Required [facility] Encounters Encounter Date Encounter Type Care Provider Facility Start: 08-25-2024 End: 08-25-2024 Telemedicine consultation with patient Karma D Rafa COST CONTROL SUPERVISOR.BALANCE AND HAIRSPRING ASSEMBLER Work Phone: [facility] Comment on above: Viral gastroenteriti s (Primary Dx); Headache, unspecified headache type Start: 08-25-2024 End: 08-25-2024 ambulatory Facility:[facility] Start: 01-17-2024 End: 01-17-2024 Patient encounter procedure Coty Villela COST CONTROL SUPERVISOR-BALANCE AND HAIRSPRING ASSEMBLER Work Phone: [facility] Comment on above: Encounter for physic al examination related to employment (Primary Dx) Start: 01-17-2024 End: 01-17-2024 ambulatory COTY VILLELA [facility] Start: 12-20-2022 End: 12-20-2022 ambulatory Nickie Olegario COST CONTROL SUPERVISOR.BALANCE AND HAIRSPRING ASSEMBLER Work Phone: Telemedicine Comment on above: URI, acute (Primary Dx); Encounter to establish care Start: 12-20-2022 End: 12-20-2022 Telemedicine consultation with patient Nickie Olegario COST CONTROL SUPERVISOR.BALANCE AND HAIRSPRING ASSEMBLER Work Phone: [facility] Start: 03-09-2022 End: 03-09-2022 Emergency department patient visit Coty Villela [facility] Start: 03-09-2020 End: 03-09-2020 Patient encounter procedure MENDY Kael [facility] Plan of Treatment Date Care Activity Detail Author Start: 2048 Zoster Vaccines (1 of 2) Zoster Vaccines (1 of 2) [facility] Start: 04-19-2024 Covid-19 Vaccine ( season) Covid-19 Vaccine ( season) [facility] Start: 04-19-2024 Influenza vaccination [facility] Start: 04-19-2023 COVID-19 Vaccine ( season) COVID-19 Vaccine ( season) [facility] Start: 04-19-2023 Influenza [facility] Start: 08-19-2022 DEPRESSION ASSESSMENT DEPRESSION ASSESSMENT [facility] Start: 04-05-2019 DTaP/Tdap/Td Vaccines (7 - Td or Tdap) DTaP/Tdap/Td Vaccines (7 - Td or Tdap) [facility] Start: 04-05-2019 Urine microalbumin profile DTaP,Tdap,Td Vaccine (7 - Td or Tdap) [facility] Start: 2017 Urine microalbumin profile DTAP,TDAP,TD (1 - Tdap) [facility] Start: 07-25-2016 Hepatitis A Vaccines (2 of 2 - 2-dose series) Hepatitis A Vaccines (2 of 2 - 2-dose series) [facility] Start: 2016 Anxiety Screening Anxiety Screening [facility] Start: 2016 Depression Screening Depression Screening [facility] Start: 2016 HEPATITIS C SCREENING HEPATITIS C SCREENING [facility] Start: 2016 Hepatitis C screening Hepatitis C Screening [facility] Start: 2016 HIV SCREENING HIV SCREENING [facility] Start: 2016 HIV screening HIV Screening [facility] Start: 2013 HPV Vaccine (1 - Male 3-dose series) HPV Vaccine (1 - Male 3-dose series) [facility] Start: 2013 HPV Vaccines (1 - Male 3-dose series) HPV Vaccines (1 - Male 3-dose series) [facility] Start: 2012 PEDS TO ADULT TRANSITION ANNUAL ASSESSMENT PEDS TO ADULT TRANSITION ANNUAL ASSESSMENT [facility] Start: 2010 PEDS TO ADULT TRANSITION INITIAL DISCUSSION PEDS TO ADULT TRANSITION INITIAL DISCUSSION [facility] Start: 2009 HPV VACCINE (1 - Male 2-dose series) HPV VACCINE (1 - Male 2-dose series) [facility] Start: 2008 MENINGOCOCCAL B: Consider based on risk (1 of 2 - Risk Bexsero 2-dose series) MENINGOCOCCAL B: Consider based on risk (1 of 2 - Risk Bexsero 2-dose series) [facility] Start: 1998 COVID-19 VACCINE (#1) COVID-19 VACCINE (#1) [facility] Start: 1998 HEPATITIS B (1 of 3 - 3-dose series) HEPATITIS B (1 of 3 - 3-dose series) [facility] Start: 1998 HIV screening HIV Screening [facility] Start: 1998 Lipid panel Lipid Panel [facility] Start: 1998 Yearly Adult Physical Yearly Adult Physical [facility] Immunizations Immunization Date Immunization Notes Care Provider Fa pedro 08-31-2021 influenza virus vaccine, unspecified formulation Coty Villela COST CONTROL SUPERVISOR-BALANCE AND HAIRSPRING ASSEMBLER Work Phone: [facility] Work Phone: 01-24-2016 hepatitis A and hepatitis B vaccine Coty Villela COST CONTROL SUPERVISOR-BALANCE AND HAIRSPRING ASSEMBLER Work Phone: [facility] Work Phone: Payers Date Payer Category Payer Private Health Insurance [facility] [employer] [id number] 2024-Present [phone] [address] [place] [address] HMO [id number] 2024 Unknown [id number] 1959 Unknown 0 Unknown [id number] Unknown SELF PAY PRE CAR D SERVICES\\SELF PAY PRE PAID Social History Date Type Detail Facility [facility] Tobacco smoking consumption unknown [facility] Start: 12-18-2019 End: 01-17-2024 Tobacco smoking status NHIS Never smoked tobacco [facility] Work Phone: Start: 12-18-2019 End: 01-17-2024 Tobacco use and exposure Smokeless tobacco non-user [facility] Work Phone: Start: 2000 Sex Assigned At Not on file [facility] Start: 01-17-2024 Alcoholic beverage intake Current drinker of alcohol (finding) [facility] Work Phone: Start: 01-17-2024 Alcohol Comment social [facility] Work Phone: Start: 07-29-2020 End: 08-25-2024 Gender identity Not on file [facility] Work Phone: Start: 01-07-2024 End: 01-17-2024 Exposure to SARS-CoV-2 (event) Not sure [facility] Start: 07-29-2020 End: 08-25-2024 History of Social function [facility] National Score (1-100), lower number is lower risk Not on file [facility] Instructions 08-25-2024 Patient Instructions Note Date & Type Note Facility 08-25-2024 Instructions Karma Craig APRN.CNP - 08/25/2024 9:10 AM EST Please seek further in person evaluation for persistent or worsening symptoms. documented in this encounter [facility] Progress note 08-25-2024 Note Date & Type Note Facility 08-25-2024 Note HNO ID: [id number] Author: KARMA CRAIG APRN.CNP Service: ? Author Type: Nurse Practitioner Type: Progress Notes Filed: 08/25/2024 09:10 Note Text: Telemedicine Evaluation for an Illness MyChart Zoom Video Visit was used for evaluation of this patient. I have communicated my name and active licensure. The patient's identity and physical location were verified at the time of this visit. Either the patient or their legal development representative has been informed of the risks [...] Red flag symptoms requiring follow up discussed [facility] History of Present illness Narrative 08-25-2024 Karma [...] visit. Either the patient or their legal development representative has been informed of the risks [...] follow up discussed documented in this encounter [facility] History of Present illness Narrative 01-17-2024 WU Jenkins - 01/17/2024 10:50 AM EDT Note Date & Type Note Facility 01-17-2024 History of Present illness Narrative [facility] WU Jenkins Visit Note [...] Mountain Dew and energy drinks. 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 --- CHIEF COMPLAINT: Work physical HISTORY OF PRESENT ILLNESS: The history was obtained from patientLizzy Ham is a 23 y.o. 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 He is not currently on any medications; reports he did recently stop drinking Mountain Dew and energy drinks to try to help lower his BP, which has been elevated in the past. Has history of CRPS in his R knee since [id number] - reports his symptoms are well managed and patient does not feel his symptoms would interfere with ability to safely perform duties as an POSTAL SERVICE MAIL PROCESSOR; has not needed to see a doctor [...] physical activity and job duties as an POSTAL SERVICE MAIL PROCESSOR. REVIEW OF SYSTEMS: 10 systems reviewed negative [...] duck walk without difficulty. Gait unremarkable. Integumentary: Bentley, warm, dry, and Intact. No rashes appreciated. Neurologic: Alert, Oriented, Normal sensory, Normal motor function. pipe tester 2-12 grossly intact. Neg Romberg. Cognition and [...] his ability to perform work as an POSTAL SERVICE MAIL PROCESSOR. 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 Paperwork completed and handed to patient. WU Jenkins Advanced Practice Provider [facility] documented in this encounter [facility] Work Phone: Instructions 12-20-2022 Patient Instructions Note Date & Type Note Facility 12-20-2022 Instructions Nickie Melvin APRN.CNP - 12/20/2022 7:37 PM EDT Please schedule a next available establishing physical with a primary care provider. The [facility] appointment center is open 11/03 and can assist you with scheduling by calling [phone]. Please complete a rapid at home covid [...] outside corner of the right eye. 5. Madison one spray only. Take a sniff as [...] the brand name. documented in this encounter [facility] History of Present illness Narrative 12-20-2022 Nickie Melvin APRN.CINTIA - 12/20/2022 7:32 PM EDT Note Date & Type Note Facility 12-20-2022 History of Presen t illness Narrative Telemedicine Visit - Distance Health Virtual Visit Note Patient seen on [employer] platform. [place] of [place] History of Present Illness Jitendra Allen is [...] physical with a primary care provider. The [facility] appointment center is open 11/03 and can assist you with scheduling by calling [phone]. Please complete a rapid at home covid [...] outside corner of the right eye. 5. Madison one spray only. Take a sniff as [...] visit. Either the patient or their legal development representative has been informed of the risks [...] would like to continue care with a [facility] Virtual Primary Care physician, please ask your provider to place a "Establish Primary Care" order. Use MICMALI to manage your care, wherever you are, 11/03, on your mobile device or computer. [employer] connects you to [employer] so you can access all your health information in one place and also schedule and request virtual appointments with primary care providers. documented in this encounter [facility] Evaluation note Note Date & Type Note Facility Evaluation note Diagnosis URI, acute- Primary Acute upper respiratory infections of unspecified site Encounter to establish care Other reasons for seeking consultation documented in this encounter [facility] Evaluation note Note Date & Type Note Facility Evaluation note Diagnosis Encounter for physical examination related to employment- Primary documented in this encounter [facility] Work Phone: Evaluation note Note Date & Type Note Facility Evaluation note Diagnosis Viral gastroenteritis- Primary Intestinal infection due to other organism, not elsewhere classified Headache, unspecified headache type documented in this encounter [facility] Summary Purpose Family History No Family [...] WITH PRIMARY CARE NEW PATIENT OFFICE/OUTPATIENT NEW [facility] 60-74 MINUTES Nickie Melvin APRN.CNP [address] [place] [address] Referral ID Status Reason Start Date Expiration Date Visits Requested Visits Authorized [id number] Pending Review PCP Requested Referral 12/20/2022 12/20/2023 1 1 Additional Source Comments (unrecognized sect ion and content) No Status Records FoundNo Status Records FoundNo Status Records FoundNo Status Records FoundNo Status Records Found INFORMATION SOURCE (unrecogn ized section and content) DATE CREATED AUTHOR 03/12/2020 [facility] DATE CREATED AUTHOR AUTHOR'S ORGANIZ ATION 12/22/2021 [facility] DATE CREATED AUTHOR AUTHOR'S ORGANIZ ATION 03/13/2022 [facility] DATE CREATED AUTHOR AUTHOR'S ORGANIZ ATION 01/18/2024 [facility] DATE CREATED AUTHOR AUTHOR'S ORGANIZ ATION 08/31/2024 [facility] <item> Privacy Markings (unrecogniz ed section and [...] or prosecute any alcohol or drug abuse patient.[facility] the event this information is protected by the Federal Confidentiality of Alcohol and Drug Abuse Patient Records regulations: The Federal rules restrict any use of the information to criminally investigate or prosecute any alcohol or drug abuse patient.[facility] Reason for Visit (unrecogniz ed section [...] THE PRIMARY CLINICAL RECORDS. [facility] [employer] [facility]. provides no warranty or guarantee of the accuracy or completeness of information in this document.
[2025-05-05 21:55] VITALS: BP 150/94; PULSE 95; RESP 18; TEMP 36.6; O2SAT 97
[2025-05-05] MEDS: 0.9% Saline Lock 10 ML Syringe IV (22:37)
[2025-05-05] MEDS: 0.9% Normal Saline (1000mL) 1,000 ML 100 ML IV (22:37)
[2025-05-05] MEDS: MELATONIN 3 MG TABLET PO (22:40)
[2025-05-05] MEDS: guaiFENesin 10 ML UDC (200MG/10ML) PO (22:41)
[2025-05-06] VITALS (9 sets, daily range): BP systolic 142–152; BP diastolic 94–106; PULSE 79–97; RESP 16–20; TEMP 36.6–36.8; O2SAT 94–98
--- OUTSIDE RECORDS SUMMARY | 2025-05-06 05:57 | XMS RPT_ITS | CCD ---
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 OUTPATIENT MEDICATIONS: Home Medications Review Status for Reconciliation: Complete Med Status: No Current Medications SIGNIFICANT EVENTS: Social/Behavioral Description:pt denies use No known significant events or known past surgical history. Is up to date with immunizations, per patient. CRITICAL CARE VITAL SIGNS: T PRBP SpO2O2(LPM) %FiO2 Method 09-Mar-2022 09:47:[id number] 97 Recheck BP: 142/93. Patient asymptomatic - [...] - is planning to start as an HARVEST SUPERVISOR at a longterm. 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 He reports is up to date with all immunizations and well visits - reports has already received the [id number] flu vaccine and the Hep B series. [...] duck walk without difficulty. Gait unremarkable. Integumentary: [place], warm, dry, and Intact. No rashes appreciated. Neurologic: Alert, Oriented, Normal sensory, Normal motor function. audit mgr 2-12 grossly intact. Neg Romberg. Cognition and [...] exam don (more content not included)... Normal [facility] COVID 19 AG RAPID (VANCE Kaye)on 08-31-2021 SARS-CoV-2 (COVID-19) RNA NATASHA+probe Ql (Unsp spec) SARS-CoV-2 (COVID 19) Negative RAPID METHOD Quidel Rosemarie Analyzer DONALD Normal [facility] Comment on above: Performed By: #### [id number] #### [facility] [address] [place], [place], [id number] Urgent Care Visit Reporton 1 10-10-2020 Urgent Care Visit Report [facility] [facility] [address] [place], [place] [address] OFFICE VISIT Date of Service: 08/09/21 MR#: [id number] Acct: [id number] Name: JITENDRA ALLEN Rep #: [id number] : 2000 Provider: ERIKA anderson Age/Sex: 21/M Location: [facility] Status: Signed Intake Intake Visit Reasons: [facility] PHYSICAL/[facility] Medical History (Updated 08/09/21 @ 09:40 by [...] Cosigner Signature: Date (if applicable) CC: Normal [facility] DONIS XR Chest 1 view-APon 02-17 [...] MD Date: 03/09/2020 10:32 Normal [facility] Vital Signs Date Time Vital Sign Value Performing Clinician Facility 01-17-2024 11:15-0400 Diastolic blood pressure 94 mm[Hg] Coty Villela APRN-FINANCIAL SECRETARY Work Phone: [facility] 01-17-2024 11:15-0400 Systolic blood pressure 138 mm[Hg] Coty Villela APRN-FINANCIAL SECRETARY Work Phone: [facility] 01-17-2024 10:52-0400 Body height 170.2 cm Coty Villela APRN-FINANCIAL SECRETARY Work Phone: [facility] 01-17-2024 10:52-0400 Body mass index (BMI) [Ratio] 33.67 kg/m2 Coty Villela APRN-FINANCIAL SECRETARY Work Phone: [facility] 01-17-2024 10:52-0400 Body temperature 98.8 [degF] Coty Villela APRN-FINANCIAL SECRETARY Work Phone: [facility] 01-17-2024 10:52-0400 Body weight 97.52 kg Coty Villela APRN-FINANCIAL SECRETARY Work Phone: [facility] 01-17-2024 10:52-0400 Heart rate 71 /min Coty Villela APRN-FINANCIAL SECRETARY Work Phone: [facility] 01-17-2024 10:52-0400 Respiratory rate 18 /min Coty Villela APRN-FINANCIAL SECRETARY Work Phone: [facility] 01-17-2024 10:52-0400 SaO2% (BldA) [Mass fraction] 98 % Coty Villela APRN-FINANCIAL SECRETARY Work Phone: [facility] 03-09-2022 11:47-0400 Body height 168 cm No Pcp Required [facility] 03-09-2022 11:47-0400 Body temperature 97.16 [degF] No Pcp Required [facility] 03-09-2022 11:47-0400 Diastolic blood pressure 93 mm[Hg] No Pcp Required [facility] 03-09-2022 11:47-0400 Heart rate 92 /min No Pcp Required [facility] 03-09-2022 11:47-0400 SaO2% (BldA) [Mass fraction] 97 % No Pcp Required [facility] 03-09-2022 11:47-0400 Systolic blood pressure 142 mm[Hg] No Pcp Required [facility] Encounters Encounter Date Encounter Type Care Provider Facility Start: 08-25-2024 End: 08-25-2024 Telemedicine consultation with patient Karma D Rafa LEGAL ANALYST.FINANCIAL SECRETARY Work Phone: [facility] Comment on above: Viral gastroenteriti s (Primary Dx); Headache, unspecified headache type Start: 08-25-2024 End: 08-25-2024 ambulatory Facility:[facility] Start: 01-17-2024 End: 01-17-2024 Patient encounter procedure Coty Villela LEGAL ANALYST-FINANCIAL SECRETARY Work Phone: [facility] Comment on above: Encounter for physic al examination related to employment (Primary Dx) Start: 01-17-2024 End: 01-17-2024 ambulatory COTY VILLELA [facility] Start: 12-20-2022 End: 12-20-2022 ambulatory Nickie Olegario LEGAL ANALYST.FINANCIAL SECRETARY Work Phone: Telemedicine Comment on above: URI, acute (Primary Dx); Encounter to establish care Start: 12-20-2022 End: 12-20-2022 Telemedicine consultation with patient Nickie Olegario LEGAL ANALYST.FINANCIAL SECRETARY Work Phone: [facility] Start: 03-09-2022 End: 03-09-2022 Emergency department patient visit Coty Villela [facility] Start: 03-09-2020 End: 03-09-2020 Patient encounter procedure MENDY Kael [facility] Plan of Treatment Date Care Activity Detail Author Start: 2048 Zoster Vaccines (1 of 2) Zoster Vaccines (1 of 2) [facility] Start: 04-19-2024 Covid-19 Vaccine ( season) Covid-19 Vaccine ( season) [facility] Start: 04-19-2024 Influenza vaccination [facility] Start: 04-19-2023 COVID-19 Vaccine ( season) COVID-19 Vaccine ( season) [facility] Start: 04-19-2023 Influenza [facility] Start: 08-19-2022 DEPRESSION ASSESSMENT DEPRESSION ASSESSMENT [facility] Start: 04-05-2019 DTaP/Tdap/Td Vaccines (7 - Td or Tdap) DTaP/Tdap/Td Vaccines (7 - Td or Tdap) [facility] Start: 04-05-2019 Urine microalbumin profile DTaP,Tdap,Td Vaccine (7 - Td or Tdap) [facility] Start: 2017 Urine microalbumin profile DTAP,TDAP,TD (1 - Tdap) [facility] Start: 07-25-2016 Hepatitis A Vaccines (2 of 2 - 2-dose series) Hepatitis A Vaccines (2 of 2 - 2-dose series) [facility] Start: 2016 Anxiety Screening Anxiety Screening [facility] Start: 2016 Depression Screening Depression Screening [facility] Start: 2016 HEPATITIS C SCREENING HEPATITIS C SCREENING [facility] Start: 2016 Hepatitis C screening Hepatitis C Screening [facility] Start: 2016 HIV SCREENING HIV SCREENING [facility] Start: 2016 HIV screening HIV Screening [facility] Start: 2013 HPV Vaccine (1 - Male 3-dose series) HPV Vaccine (1 - Male 3-dose series) [facility] Start: 2013 HPV Vaccines (1 - Male 3-dose series) HPV Vaccines (1 - Male 3-dose series) [facility] Start: 2012 PEDS TO ADULT TRANSITION ANNUAL ASSESSMENT PEDS TO ADULT TRANSITION ANNUAL ASSESSMENT [facility] Start: 2010 PEDS TO ADULT TRANSITION INITIAL DISCUSSION PEDS TO ADULT TRANSITION INITIAL DISCUSSION [facility] Start: 2009 HPV VACCINE (1 - Male 2-dose series) HPV VACCINE (1 - Male 2-dose series) [facility] Start: 2008 MENINGOCOCCAL B: Consider based on risk (1 of 2 - Risk Bexsero 2-dose series) MENINGOCOCCAL B: Consider based on risk (1 of 2 - Risk Bexsero 2-dose series) [facility] Start: 1998 COVID-19 VACCINE (#1) COVID-19 VACCINE (#1) [facility] Start: 1998 HEPATITIS B (1 of 3 - 3-dose series) HEPATITIS B (1 of 3 - 3-dose series) [facility] Start: 1998 HIV screening HIV Screening [facility] Start: 1998 Lipid panel Lipid Panel [facility] Start: 1998 Yearly Adult Physical Yearly Adult Physical [facility] Immunizations Immunization Date Immunization Notes Care Provider Fa pedro 08-31-2021 influenza virus vaccine, unspecified formulation Coty Villela LEGAL ANALYST-FINANCIAL SECRETARY Work Phone: [facility] Work Phone: 01-24-2016 hepatitis A and hepatitis B vaccine Coty Villela LEGAL ANALYST-FINANCIAL SECRETARY Work Phone: [facility] Work Phone: Payers Date Payer Category Payer Private Health Insurance [facility] CHOICE PLUS [id number] 2024-Present [phone] [address] [place] [address] HMO [id number] 2024 Unknown [id number] 1961 Unknown 0 Unknown [id number] Unknown SELF PAY PRE CAR D SERVICES\\SELF PAY PRE PAID Social History Date Type Detail Facility [facility] Tobacco smoking consumption unknown [facility] Start: 12-18-2019 End: 01-17-2024 Tobacco smoking status NHIS Never smoked tobacco [facility] Work Phone: Start: 12-18-2019 End: 01-17-2024 Tobacco use and exposure Smokeless tobacco non-user [facility] Work Phone: Start: 2000 Sex Assigned At Not on file [facility] Start: 01-17-2024 Alcoholic beverage intake Current drinker of alcohol (finding) [facility] Work Phone: Start: 01-17-2024 Alcohol Comment social [facility] Work Phone: Start: 07-29-2020 End: 08-25-2024 Gender identity Not on file [facility] Work Phone: Start: 01-07-2024 End: 01-17-2024 Exposure to SARS-CoV-2 (event) Not sure [facility] Start: 07-29-2020 End: 08-25-2024 History of Social function [facility] National Score (1-100), lower number is lower risk Not on file [facility] Instructions 08-25-2024 Patient Instructions Note Date & Type Note Facility 08-25-2024 Instructions Karma Craig APRN.CNP - 08/25/2024 9:10 AM EST Please seek further in person evaluation for persistent or worsening symptoms. documented in this encounter [facility] Progress note 08-25-2024 Note Date & Type Note Facility 08-25-2024 Note HNO ID: [id number] Author: KARMA CRAIG APRN.CNP Service: ? Author Type: Nurse Practitioner Type: Progress Notes Filed: 08/25/2024 09:10 Note Text: Telemedicine Evaluation for an Illness MyChart Zoom Video Visit was used for evaluation of this patient. I have communicated my name and active licensure. The patient's identity and physical location were verified at the time of this visit. Either the patient or their legal training representative has been informed of the risks [...] Red flag symptoms requiring follow up discussed [facility] History of Present illness Narrative [...] visit. Either the patient or their legal training representative has been informed of the risks [...] follow up discussed documented in this encounter [facility] History of Present illness Narrative 01-17-2024 WU Jenkins - 01/17/2024 10:50 AM EDT Note Date & Type Note Facility 01-17-2024 History of Present illness Narrative [facility] WU Jenkins Visit Note - [...] Mountain Dew and energy drinks. 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 --- CHIEF COMPLAINT: Work physical HISTORY OF PRESENT ILLNESS: The history was obtained from patientLizzy Ham is a 23 y.o. 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 He is not currently on any medications; reports he did recently stop drinking Mountain Dew and energy drinks to try to help lower his BP, which has been elevated in the past. Has history of CRPS in his R knee since [id number] - reports his symptoms are well managed and patient does not feel his symptoms would interfere with ability to safely perform duties as an HARVEST SUPERVISOR; has not needed to see a doctor [...] physical activity and job duties as an HARVEST SUPERVISOR. REVIEW OF SYSTEMS: 10 systems reviewed negative [...] duck walk without difficulty. Gait unremarkable. Integumentary: [place], warm, dry, and Intact. No rashes appreciated. Neurologic: Alert, Oriented, Normal sensory, Normal motor function. audit mgr 2-12 grossly intact. Neg Romberg. Cognition and [...] his ability to perform work as an HARVEST SUPERVISOR. Based on today's history and exam, patient medically cleared for work as an HARVEST SUPERVISOR, although encouraged to continue regular follow-up with PCP for HTN (BP elevated today; patient asymptomatic), CRPS, monitoring of latent TB, and annual health maintenance visits. Paperwork completed and handed to patient. [facility] Advanced Practice Provider [facility] documented in this encounter [facility] Work Phone: Instructions 12-20-2022 Patient Instructions Note Date & Type Note Facility 12-20-2022 Instructions Nickie Melvin APRN.CNP - 12/20/2022 7:37 PM EDT Please schedule a next available establishing physical with a primary care provider. The [facility] appointment center is open 11/03 and can assist you with scheduling by calling [phone]. Please complete a rapid at home covid [...] outside corner of the right eye. 5. [place] one spray only. Take a sniff as [...] the brand name. documented in this encounter [facility] History of Present illness Narrative 12-20-2022 Nickie Melvin APRN.CINTIA - 12/20/2022 7:32 PM EDT Note Date & Type Note Facility 12-20-2022 History of Presen t illness Narrative Telemedicine Visit - Distance Health Virtual Visit Note Patient seen on [employer] platform. Location of patient: [place] History of Present Illness Jitendra Allen is [...] can assist you with scheduling by calling [phone]. Please complete a rapid at home covid [...] outside corner of the right eye. 5. [place] one spray only. Take a sniff as [...] visit. Either the patient or their legal training representative has been informed of the risks [...] would like to continue care with a [facility] Virtual Primary Care physician, please ask your provider to place a "Establish Primary Care" order. Use [employer] to manage your care, wherever you are, 11/03, on your mobile device or computer. [employer] connects you to iwi so you can access all your health information in one place and also schedule and request virtual appointments with primary care providers. documented in this encounter [facility] Evaluation note Note Date & Type Note Facility Evaluation note Diagnosis URI, acute- Primary Acute upper respiratory infections of unspecified site Encounter to establish care Other reasons for seeking consultation documented in this encounter [facility] Evaluation note Note Date & Type Note Facility Evaluation note Diagnosis Encounter for physical examination related to employment- Primary documented in this encounter [facility] Work Phone: Evaluation note Note Date & Type Note Facility Evaluation note Diagnosis Viral gastroenteritis- Primary Intestinal infection due to other organism, not elsewhere classified Headache, unspecified headache type documented in this encounter [facility] Summary Purpose Family History No Family [...] WITH PRIMARY CARE NEW PATIENT OFFICE/OUTPATIENT NEW [facility] 60-74 MINUTES Nickie Melvin APRN.CNP [address] [place] [address] Referral ID Status Reason Start Date Expiration Date Visits Requested Visits Authorized [id number] Pending Review PCP Requested Referral 12/20/2022 12/20/2023 1 1 Additional Source Comments (unrecognized sect ion and content) No Status Records FoundNo Status Records FoundNo Status Records FoundNo Status Records FoundNo Status Records Found INFORMATION SOURCE (unrecogn ized section and content) DATE CREATED AUTHOR 03/12/2020 [facility] DATE CREATED AUTHOR AUTHOR'S ORGANIZ ATION 12/22/2021 [facility] DATE CREATED AUTHOR AUTHOR'S ORGANIZ ATION 03/13/2022 [facility] DATE CREATED AUTHOR AUTHOR'S ORGANIZ ATION 01/18/2024 [facility] DATE CREATED AUTHOR AUTHOR'S ORGANIZ ATION 08/31/2024 [facility] <item> Privacy Markings (unrecogniz ed [...] or prosecute any alcohol or drug abuse patient.[facility] the event this information is protected by the Federal Confidentiality of Alcohol and Drug Abuse Patient Records regulations: The Federal rules restrict any use of the information to criminally investigate or prosecute any alcohol or drug abuse patient.[facility] Reason for Visit (unrecogniz ed section [...] BE BASED ON THE PRIMARY CLINICAL RECORDS. [facility] [employer] [facility]. provides no warranty or guarantee of the accuracy or completeness of information in this document.
[2025-05-06] MEDS: 0.9% Saline Lock 10 ML Syringe IV (06:18)
[2025-05-06 08:09] LABS: Hematocrit 43.3 % (40-54); Hemoglobin 14.9 g/dL (13.0-16.5); Immature Granulocytes Count 0.070 X10^3/uL (0.0-0.0); Mean Corp Hgb Conc 34.4 g/dL (32-36); Mean Corpuscular Volume 88.5 fL (80-94); Mean Platelet Vol. 9.5 fl (6.2-12.0); NRBC Flagged by Analyzer 0 % (0-5); Platelet Count 231 K/mm3 (150-450); RBC Distribution Width CV 13.2 % (11.6-14.6); RBC Distribution Width SD 43.0 fl (35.1-43.9); Red Blood Count 4.89 M/mm3 (4.6-6.2); White Blood Count 14.5 K/mm3 (4.4-11.0)
[2025-05-06 08:31] LABS: D-Dimer Quantitative (DVT/PE) 0.46 FEU/ug/m (0.27-0.49)
[2025-05-06 08:42] LABS: AST(SGOT) 14 U/L (<=37); Alanine Aminotransfer ALT/SGPT 40 U/L (<=46); Albumin, Serum 4.3 g/dL (3.5-5.0); Alkaline Phosphatase 66 U/L (40-129); Anion Gap 13 (5-15); BUN 15 mg/dL (4-19); BUN/Creat Ratio 20.1 RATIO (10-20); Calcium,Total 9.1 mg/dL (7.6-11.0); Carbon Dioxide 21.6 mmol/L (21.0-32.0); Chloride 104 mmol/L (98-108); Estimated Creatinine Clearance 164.45 ml/min (50-250); Globulin 3.2 g/dL (2.2-4.2); Glucose 89 mg/dL (70-99); Potassium 4.0 mmol/L (3.3-5.1)
[2025-05-06 08:49] LABS: Procalcitonin 0.29 ng/mL (<=0.10)
--- NOTE | 2025-05-06 12:20 | CASEMGMT ---
RN [employer] PAINTER CM to room to meet with patient for initial transition planning/care coordination assessment. VANCE CORDERO introduced self and role at [facility]. Pt voices understanding and consents to assessment at this time. Pt sitting up in chair in no distress at this time. in room visiting. Pt is A/O at this time and answers all questions appropriately. Care providers, pharmacy, and demographics verified/updated at this time. Strata:1 PCP: No PCP. Pt provided w/local physician's directory Specialists: Pt had appt scheduled today w/orthopedic physician in [place] for complex regional pain syndrome. It has been rescheduled for 05/12. Preferred Pharmacy: [facility] [address]. Otherwise goes to [facility] in [place]. Insurance: [facility] Prescription Benefit: yes LNOK: Juliana Living Arrangements: Lives w/ and daughter in 2-story home w/4 steps to enter. Bedroom and bathroom on 2nd floor. There is also a bathroom on main floor. Pt could do FFSU, if needed. Pt is independent. 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 able to assist as needed in the home when pt has flare-ups. Transportation: Patient drives. DME: Pt has crutches and uses them PRN/ when having RLE complex regional pain syndrome. Therapy has worked w/pt today w/a walker. Pt reports being able to manage w/the walker better than w/the crutches and he would like to get a walker @ discharge. He denies having a preference of DME company, made aware [employer] is in-network w/[facility] and he states okay with [employer]. He does not have a pulse ox. VANCE CORDERO recommended to get one and made aware of locations this can be purchased. Pt states no need for further DME at this time. HHC/SNF: No hx of either. Denies needs and no needs identified. Pt wishes to return home and states has no concerns with going home at time of discharge. CM to follow for home oxygen needs and any further discharge planning/needs. Pt and voice no further concerns/needs at this time. PLAN: Home w/walker. Michel ANGEL RN, CM
--- NOTE | 2025-05-06 14:06 | DCINST_ITS ---
Discharge Instructions DC O2, CPAP, BIPAP needs Home O2 Discharge instructions: No Dressing / Incision Discharge Activity: Return to Normal Activity Weight Bearing Status: Weight bearing as tolerated Dressing / Incision Call your doctor if you observe: Fever of 101 or Higher, Shortness of breath, Dizziness, Swelling in the ankles and Chest pain Follow Up Care Test Results: Test results from this visit will be discussed in further detail at your follow- up appointment, if applicable. Discharge Plan Admission Admit Date/Time: 05/05/25 20:31 Primary Reason for Your Visit: hypoxia, viral URTI Attending Provider: Romelia Easley Primary Care Provider: Care Physician,No Primary Consulting Providers: Polly Ornelas Instructions Patient Instructions: URI Upper Respiratory ..., ED Dyspnea Discharge Orders/Prescriptions Prescriptions: No Action NK Referrals / Follow Up: Bisi Aden MD [Med Staff - Active Staff, Internal Medicine] - Within 1 Month Referral Note: see to establish PCP care Care Physician,No Primary [Primary Care Provider, Medical] Disposition Disposition (needs filled in before D/C Order can be placed): Home, Self Care
--- NOTE | 2025-05-06 14:06 | DS.PCM_ITS ---
Providers Date of Admission: 05/05/25 Date of Discharge: 05/06/25 Primary Care Physician: No Primary Care Phys Reason For Visit: HYPOXIA, ACUTE VIRAL SYNDROME Diagnosis Discharge Diagnosis (1) Hypoxia: Status: Acute Code(s): R09.02 - Hypoxemia Medications at Discharge Home Medications NK 05/05/25 Hospital Course Operations None Procedures None Summary of Care Provided Minutes Spent on Discharge: 38 Hospital Course: Patient is a 25-year-old male with a past medical history as outlined including obesity and asthma as well as chronic complex regional pain syndrome with chronic right foot pain who was admitted via the ED on 05/05/2025 with a complaint of generalized malaise and shortness of breath as well as headache and sinus pressure. He also had a nonproductive cough and subjective fever and chills. Review of systems otherwise negative. He went to an outside facility and plan was to discharge him home but he had walking pulse ox which showed that he was 86% on room air with ambulation so he was transferred to [place]. CT of the abdomen and pelvis showed no acute intracranial pathology and showed hepatic steatosis and showed bibasilar atelectasis and/or scarring. Labs were essentially unremarkable. He was admitted to be managed for hypoxia with concerns for possible upper respiratory tract viral infection. Patient shortness of breath improved and he felt much better. He remained on room air and he had a walking pulse ox on 05/06/2025 which showed that he did not have any hypoxia with ambulation and did not require any oxygen. He was agreeable to being discharged home. He was therefore discharged on 05/06/2025 and is to follow-up with his primary care doctor within 1 to 2 weeks. Patient seen and examined prior to discharge. He had no active complaints. He had an uneventful night. Review of systems otherwise negative. Labs and vitals reviewed. Home medication reviewed and reconciled. Physical Exam Const alert, oriented x3 and no apparent distress Constitutional Narrative: class I obesity General Appearance: cooperative and comfortable Orientation / Consciousness: awake, oriented to person, oriented to place and oriented to time Exam Limitations: no limitations HEENT normocephalic, head/scalp atraumatic and hearing grossly normal bilaterally Mouth: oral and palatal mucosa normal Eyes EOMs intact bilaterally and conjunctivae normal Neck supple and no JVD Resp Resp Narrative: mildly diminished breath sounds bibasally, no wheezes or crackles. On room air. Cardio regular rate, regular rhythm, S1 normal heart sound, S2 normal heart sound and no murmurs GI normal to inspection, nondistended, normoactive bowel sounds, soft to palpation, non-tender and non-distended Extremity normal to inspection and full ROM Skin no rashes or lesions noted Neuro oriented x3, moves all extremities and no focal motor deficits Sensorium / Orientation: awake and alert Motor Exam: strength 5/5 throughout Psych affect normal Weight / BMI Weight Weight: 218 lb 8 oz Body Mass Index (BMI) 33.2 ABG / Lab / Microbiology Data 05/06/25 07:50 05/06/25 07:50 Laboratory: Laboratory Results - last 24 hr 05/06/25 07:50: WBC 14.5 H, RBC 4.89, Hgb 14.9, Hct 43.3, MCV 88.5, MCH 30.5, MCHC 34.4, RDW Std Deviation 43.0, RDW Coeff of Mars 13.2, Plt Count 231, MPV 9.5, Immature Gran % (Auto) 0.500, Neut % (Auto) 77.9 H, Lymph % (Auto) 12.9 L, [place] % (Auto) 8.1, Eos % (Auto) 0.3, Baso % (Auto) 0.3, Absolute Neuts (auto) 11.3 H, Absolute Lymphs (auto) 1.87, Nucleated RBC % 0, D-Dimer Quant (PE/DVT) 0.46, Sodium 139, Potassium 4.0, Chloride 104, Carbon Dioxide 21.6, Anion Gap 13, BUN 15, Creatinine 0.77, Estim Creat Clear Calc 164.45, Est GFR (MDRD) Non- Af 126, BUN/Creatinine Ratio 20.1 H, Glucose 89, Calcium 9.1, Total Bilirubin 0.54, AST 14, ALT 40, Alkaline Phosphatase 66, Total Protein 7.6, Albumin 4.3, Globulin 3.2, Albumin/Globulin Ratio 1.3, Procalcitonin 0.29 H Microbiology: Microbiology 05/05/25 23:45 Mucosa - Nasopharyngeal Respiratory Panel (PCR) - Final 05/06/25 02:00 Urine, Clean Catch Legionella Antigen - Final 05/06/25 02:00 Urine, Clean Catch Streptococcus pneumoniae Antigen (M - Final D/C Instructions Discharge Activity: Return to Normal Activity Weight Bearing Status: Weight bearing as tolerated Call your doctor if you observe: Fever of 101 or Higher, Shortness of breath, Dizziness, Swelling in the ankles and Chest pain DC O2, CPAP, BIPAP Needs Home O2 Discharge instructions: No DC home with Oxygen: No Meaningful Use Info Meaningful Use Meaningful Use Diagnoses (Choose all that apply): None applicable Discharge Plan Admission Admit Date/Time: 05/05/25 20:31 Primary Reason for Your Visit: hypoxia, viral URTI Attending Provider: Romelia Easley Primary Care Provider: Care Physician,No Primary Consulting Providers: Polly Ornelas Instructions Patient Instructions: URI Upper Respiratory ..., ED Dyspnea Discharge Orders/Prescriptions Prescriptions: No Action NK Referrals / Follow Up: Bisi Aden MD [Med Staff - Active Staff, Internal Medicine] - Within 1 Month Referral Note: see to establish PCP care Care Physician,No Primary [Primary Care Provider, Medical] Disposition Disposition (needs filled in before D/C Order can be placed): Home, Self Care Charges/Coding Visit Charges Inpatient E&M: 80104 Disch Hosp >30min
--- NOTE | 2025-05-06 14:28 | PHA.DC.MR.R ---
Pharmacy OR Med Reconciliation Pharmacy Service has performed discharge medication reconciliation for this patient. The patient's discharge medication list was reviewed for discrepancies and discrepancies were resolved. Medications at Discharge Home Medications NK 05/05/25
--- NOTE | 2025-05-06 15:08 | CASEMGMT ---
Pt does not qualify for home oxygen. Referral sent to [facility] [place] [facility]
--- NOTE | 2025-05-06 16:57 | NURSING ---
Discharge order was entered by Dr Easley. Pt was aware and this RN explained to pt that pt did not meet requirements for home oxygen and walker was delivered to room. Therefore, pt stable to discharge. Pt reported to this RN that he "did not feel comfortable" leaving tonight d/t weakness and shortness of breath with exertion. This RN reported this to Dr Easley, and Dr Easley ordered to cancel discharge.
[2025-05-07 04:46] VITALS: BP 131/92; PULSE 72; RESP 17; TEMP 36.4; O2SAT 98
[2025-05-07 06:00] VITALS: BMI 33.4
[2025-05-07 07:22] VITALS: PULSE 85; RESP 20; O2SAT 98
[2025-05-07 07:29] VITALS: BP 147/104; PULSE 91; RESP 18; TEMP 36.6; O2SAT 98
--- NOTE | 2025-05-07 07:49 | PN_ITS ---
Subjective Subjective Late entry note for 05/06/2025 Patient was seen and examined on 05/06/2025 with his nurse by his bedside. He said he was starting to feel better. He did still have some congestion but felt it was improving.He was agreeable to going home if he did well with walking pulse ox. He had the walking pulse ox which showed him saturating at 95% with ambulation, so he was discharged home. However, in the evening patient said he felt weak and so did not think he was ready to go home. Discharge was therefore canceled. Review of systems was otherwise negative. Objective Data Objective Data Vital Signs: Vital Signs Temp Pulse Resp BP Pulse Ox O2 Del Method O2 Flow Rate 97.9 F 91 18 147/104 H 98 Room Air 97 05/07/25 07:05/07/25 07:29 05/07/25 07:29 05/07/25 07:05/07/25 07:05/07/25 07:05/06/25 12:51 Oxygen Flow Rate (L/min) 97 Oxygen Delivery Method Room Air Weight: 220 lb 7.396 oz Body Mass Index (BMI) 33.4 Intake & Output: Intake and Output for Last 24 Hours 05/05/25 05/06/25 05/07/25 23:59 23:59 23:59 Intake Total 1100 / 1330 430 / 430 Output Total 300 / 300 Balance 800 / 1030 430 / 430 Lab / Micro Data 05/06/25 07:50 05/06/25 07:50 Labs: Laboratory Results - last 24 hr 05/06/25 07:50: WBC 14.5 H, RBC 4.89, Hgb 14.9, Hct 43.3, MCV 88.5, MCH 30.5, MCHC 34.4, RDW Std Deviation 43.0, RDW Coeff of Mars 13.2, Plt Count 231, MPV 9.5, Immature Gran % (Auto) 0.500, Neut % (Auto) 77.9 H, Lymph % (Auto) 12.9 L, [place] % (Auto) 8.1, Eos % (Auto) 0.3, Baso % (Auto) 0.3, Absolute Neuts (auto) 11.3 H, Absolute Lymphs (auto) 1.87, Nucleated RBC % 0, D-Dimer Quant (PE/DVT) 0.46, Sodium 139, Potassium 4.0, Chloride 104, Carbon Dioxide 21.6, Anion Gap 13, BUN 15, Creatinine 0.77, Estim Creat Clear Calc 164.45, Est GFR (MDRD) Non- Af 126, BUN/Creatinine Ratio 20.1 H, Glucose 89, Calcium 9.1, Total Bilirubin 0.54, AST 14, ALT 40, Alkaline Phosphatase 66, Total Protein 7.6, Albumin 4.3, Globulin 3.2, Albumin/Globulin Ratio 1.3, Procalcitonin 0.29 H Micro: Microbiology 05/05/25 23:45 Mucosa - Nasopharyngeal Respiratory Panel (PCR) - Final 05/06/25 02:00 Urine, Clean Catch Legionella Antigen - Final 05/06/25 02:00 Urine, Clean Catch Streptococcus pneumoniae Antigen (M - Final Physical Exam Const alert, oriented x3 and no apparent distress Constitutional Narrative: class I obesity General Appearance: cooperative and comfortable Orientation / Consciousness: awake, oriented to person, oriented to place and oriented to time Exam Limitations: no limitations HEENT normocephalic, head/scalp atraumatic and hearing grossly normal bilaterally Eyes EOMs intact bilaterally and conjunctivae normal Neck supple and no JVD Resp Resp Narrative: mildly diminished breath sounds bibasally, no wheezes or crackles. On room air. Cardio regular rate, regular rhythm, S1 normal heart sound, S2 normal heart sound and no murmurs GI normal to inspection, nondistended, normoactive bowel sounds, soft to palpation, non-tender and non-distended Extremity normal to inspection and full ROM Skin no rashes or lesions noted Neuro oriented x3, moves all extremities and no focal motor deficits Sensorium / Orientation: awake and alert Motor Exam: strength 5/5 throughout Psych affect normal Appearance: appropriate Assessment & Plan Assessment/Plan (1) Hypoxia: PLAN: Plan #Hypoxia due to probable viral URTI * Patient feeling better. On room air. * Chest x-ray does not show any acute cardiopulmonary pathology. * Respiratory panel negative. * Breathing treatments bronchodilators. Titrate oxygen to maintain saturation above 90%. #Elevated blood pressure: Noted on hypertensive. IV hydralazine as needed. Blood pressure remains elevated will start some oral BP meds #History of asthma: Not in exacerbation. Breathing treatments bronchodilators. #Complex regional pain syndrome * Has chronic right lower extremity pain and uses crutches. * PT OT ordered. P.o. Tylenol and Toradol as needed. * Toradol was discontinued and ibuprofen added on per patient preference DVT prophylaxis: lovenox Charges/Coding Visit Charges Inpatient E&M: 47661 Subs Hosp L2
--- NOTE | 2025-05-07 10:07 | DS.PCM_ITS ---
Providers Date of Admission: 05/05/25 Date of Discharge: 05/07/25 Primary Care Physician: No Primary Care Phys Reason For Visit: HYPOXIA, ACUTE VIRAL SYNDROME Diagnosis Discharge Diagnosis (1) Hypoxia: Status: Acute Code(s): R09.02 - Hypoxemia Plan #Hypoxia due to probable viral URTI * Patient feeling better. On room air. * Chest x-ray does not show any acute cardiopulmonary pathology. * Respiratory panel negative. * Breathing treatments bronchodilators. Titrate oxygen to maintain saturation above 90%. #Elevated blood pressure: Noted on hypertensive. IV hydralazine as needed. Blood pressure remains elevated will start some oral BP meds #History of asthma: Not in exacerbation. Breathing treatments bronchodilators. #Complex regional pain syndrome * Has chronic right lower extremity pain and uses crutches. * PT OT ordered. P.o. Tylenol and Toradol as needed. * Toradol was discontinued and ibuprofen added on per patient preference DVT prophylaxis: lovenox Medications at Discharge Home Medications NK 05/05/25 Hospital Course Operations None Procedures None Summary of Care Provided Minutes Spent on Discharge: 35 Hospital Course: Patient is a 25-year-old male with a past medical history as outlined including obesity and asthma as well as chronic complex regional pain syndrome with chronic right foot pain who was admitted via the ED on 05/05/2025 with a complaint of generalized malaise and shortness of breath as well as headache and sinus pressure. He also had a nonproductive cough and subjective fever and chills. Review of systems otherwise negative. He went to an outside facility and plan was to discharge him home but he had walking pulse ox which showed that he was 86% on room air with ambulation so he was transferred to [place]. CT of the abdomen and pelvis showed no acute intracranial pathology and showed hepatic steatosis and showed bibasilar atelectasis and/or scarring. Labs were essentially unremarkable. He was admitted to be managed for hypoxia with concerns for possible upper respiratory tract viral infection. Patient shortness of breath improved and he felt much better. He remained on room air and he had a walking pulse ox on 05/06/2025 which showed that he did not have any hypoxia with ambulation and did not require any oxygen. He was agreeable to being discharged home. However on the evening of 05/06/2025 patient felt weak and did feel ready to be discharged. Discharge was therefore canceled. He was discharged home on 05/07/2025 after he felt much better. He is to follow up with his PCP within 1-2 weeks. Patient seen and examined prior to discharge with his nurse, and daughter by his bedside. He had no active complaints. He had an uneventful night. Review of systems otherwise negative. Labs and vitals reviewed. Home medication reviewed and reconciled. Physical Exam Const alert, oriented x3 and no apparent distress Constitutional Narrative: class I obesity General Appearance: cooperative and comfortable Orientation / Consciousness: awake Exam Limitations: no limitations HEENT normocephalic, head/scalp atraumatic and hearing grossly normal bilaterally Mouth: oral and palatal mucosa normal Eyes EOMs intact bilaterally and conjunctivae normal Neck supple and no JVD Resp Resp Narrative: mildly diminished breath sounds bibasally, no wheezes or crackles. On room air. Cardio regular rate, regular rhythm, S1 normal heart sound, S2 normal heart sound and no murmurs GI normal to inspection, nondistended, normoactive bowel sounds, soft to palpation, non-tender and non-distended Extremity normal to inspection and full ROM Skin no rashes or lesions noted Neuro oriented x3, moves all extremities and no focal motor deficits Sensorium / Orientation: awake and alert Motor Exam: strength 5/5 throughout Psych affect normal Appearance: appropriate Weight / BMI Weight Weight: 220 lb 7.396 oz Body Mass Index (BMI) 33.4 ABG / Lab / Microbiology Data 05/06/25 07:50 05/06/25 07:50 Microbiology: Microbiology 05/06/25 12:30 Sputum, Expectorated/Coughed Gram Stain - Final 05/05/25 23:45 Mucosa - Nasopharyngeal Respiratory Panel (PCR) - Final 05/06/25 02:00 Urine, Clean Catch Legionella Antigen - Final 05/06/25 02:00 Urine, Clean Catch Streptococcus pneumoniae Antigen (M - Final D/C Instructions Discharge Activity: Return to Normal Activity Weight Bearing Status: Weight bearing as tolerated Call your doctor if you observe: Fever of 101 or Higher, Shortness of breath, Dizziness, Swelling in the ankles and Chest pain DC O2, CPAP, BIPAP Needs Home O2 Discharge instructions: No DC home with Oxygen: No Meaningful Use Info Meaningful Use Meaningful Use Diagnoses (Choose all that apply): None applicable Discharge Plan Admission Admit Date/Time: 05/05/25 20:31 Primary Reason for Your Visit: hypoxia, viral URTI Attending Provider: Romelia Easley Primary Care Provider: Care Physician,No Primary Consulting Providers: Polly Ornelas Instructions Forms: Work / School Excuse Patient Instructions: URI Upper Respiratory ..., ED Dyspnea Discharge Orders/Prescriptions Prescriptions: No Action NK Referrals / Follow Up: Bisi Aden MD [Med Staff - Active Staff, Internal Medicine] - Within 1 Month Referral Note: see to establish PCP care Care Physician,No Primary [Primary Care Provider, Medical] Disposition Disposition (needs filled in before D/C Order can be placed): Home, Self Care Charges/Coding Visit Charges Inpatient E&M: 01304 Disch Hosp >30min
== END 2025-05-07 10:33 | disposition home or self-care (01) ==
PROVIDERS: Admitting Provider Family Medicine; Visit Provider Student in an Organized Health Care Education/Training Program
DX: R09.02 Hypoxemia (principal); E66.811 Obesity, class 1; J45.909 Unspecified asthma, uncomplicated; K76.0 Fatty (change of) liver, not elsewhere classified; M79.671 Pain in right foot; G89.29 Other chronic pain; R03.0 Elevated blood-pressure reading, without diagnosis of hypertension; R53.1 Weakness; Z68.33 Body mass index [BMI] 33.0-33.9, adult
CPT/HCPCS: 80053; 84145; 85025; 85379; 87070; 87077; 87205; 87449; 87633; 94640; 94668; 96361; 96374; 96376; 97161; 97166; 99221; A4216; G0378; G0379